=== PATIENT | female | born 1980 | race Caucasian/White ===

== ENCOUNTER → 2022-06-11 16:18 | Outpatient (CLI) | payer OTHER, SELFPAY ==
--- NOTE | ~2022-06-11 | MM_ITS ---
EXAMINATION: MM screening jazmine BI w artem HISTORY: Screening mammogram TECHNIQUE: Craniocaudal and mediolateral oblique 3-D tomosynthesis images were obtained and synthetic 2-D images were generated. CAD analysis was submitted and interpreted. COMPARISON: No prior mammogram is available for comparison at this institution. BREAST PARENCHYMAL COMPOSITION: There are scattered areas of fibroglandular density. FINDINGS: There are bilateral breast masses, mostly circumscribed and relatively low density. Bilater al diagnostic mammography and bilateral breast ultrasound examination are recommended. IMPRESSION: 1. Bilateral breast masses 2. Bilateral diagnostic mammography and breast ultrasound examination are recommended BI-RADS Category 0: Incomplete: Needs additional imaging evaluation. Reviewed, dictated and finalized at location A. HT FOLLOWER IMPRESSION: 1. Bilateral breast masses 2. Bilateral diagnostic mammography and breast ultrasound examination are recom mended BI-RADS Category 0: Incomplete: Needs additional imaging evaluation.
== END ==
PROVIDERS: PCP Family Medicine; Visit Provider Family Medicine
DX: Z12.31 Encounter for screening mammogram for malignant neoplasm of breast (principal); R92.8 Other abnormal and inconclusive findings on diagnostic imaging of breast
CPT/HCPCS: 77063; 77067

== ENCOUNTER 2022-06-29 09:28 | Outpatient (CLI) | payer OTHER, SELFPAY ==
--- NOTE | ~2022-06-29 | MMUS_ITS ---
EXAMINATION: MM diagnostic jazmine BI w artem, US breast BI complete HISTORY: Follow-up bilateral breast asymmetries. TECHNIQUE: Additional 3-D tomosynthesis images of the breasts were performed and synthetic 2-D images were generated. CAD analysis was submitted and interpreted. High resolution complete bilateral breas t ultrasound was performed. COMPARISON: 06/11/2022 BREAST PARENCHYMAL COMPOSITION: Breast composed of scattered areas of fibroglandular density FINDINGS: MAMMOGRAPHIC FINDINGS: Breast composed of scattered areas of fibroglandular density. There is a partially circumscribed mass in the lower outer quadrant of the right breast anteriorly near the nipple. There is persistent asym metry in the lateral aspect of the left breast on CC view and slightly superior in the left breast on mediolateral and MLO views. ULTRASOUND: Complete bilateral US of all 4 quadrants of the breasts and retroareolar region was reviewed. Right breast: At 9:00 near the nipple there is an irregular shaped hypoechoic mass with posterior sha dowing measuring 9 x 8 x 6 mm. No internal vascularity. At 11:00, 8 cm from the nipple there is an ov al 1 cm hypoechoic mass with parallel orientation, circumscribed margins and no internal vascularity, likely benign. Left breast: At 1:00, 8 cm from the nipple, there is an oval circumscribed hypoechoic mass with paral lel orientation, no internal vascularity and no posterior features measuring 8 mm maximum dimension. IMPRESSION: 1. Irregular shaped hypoechoic mass of the right breast at 9:00 near the areola corresponding to the mammographic finding. Ultrasound-guided right breast biopsy recommended. BI-RADS Category 4. 2. Additional bilateral breast masses are identified by ultrasound which are likely benign. Six-month follow-up ultrasound recommended for these masses. BI-RADS category 4, suspicious findings. Reviewed, dictated and finalized at location A. LY LIVING EDUCATOR IMPRESSION: 1. Irregular shaped hypoechoic mass of the right breast at 9:00 near the areola corresponding to the mammographic finding. Ultrasound-guided right breast biop sy recommended. BI-RADS Category 4. 2. Additional bilateral breast masses are identified by ultrasound which are li brennan benign. Six-month follow-up ultrasound recommended for these masses. BI-RADS category 4, suspicious findings.
== END 2022-06-29 09:29 ==
LOC: MICIMG 09:29
PROVIDERS: PCP Family Medicine; Visit Provider Family Medicine
DX: R92.8 Other abnormal and inconclusive findings on diagnostic imaging of breast (principal)
CPT/HCPCS: 76641; 77062; 77066; G0279

== ENCOUNTER 2022-07-05 11:53 | Outpatient (CLI) | payer OTHER, SELFPAY ==
--- NOTE | ~2022-07-05 | MMUS_ITS ---
MM post biopsy invasive RT, US breast biopsy RT w image EXAMINATION: US GUIDED NEEDLE BIOPSY WITH VACUUM ASSISTANCE DATE: 07/05/2022 14:12 TRENCH SHOVEL OPERATOR INDICATION: Right breast mass seen on recent examination. Ultrasound-guided core biopsy is requested to evaluate for malignancy. TECHNIQUE AND FINDINGS: The risks and potential benefits of the procedure were discussed with the patient, and written inform ed consent was obtained. After sterile preparation of the breast, 1% lidocaine was utilized for loca l anesthesia. 1% lidocaine with epinephrine was used for deep anesthesia. A 10G vacuum-assisted biopsy gun needle was advanced through to the outer edge of the region of inter est from a superior approach utilizing sonographic guidance. A total of 4 tissue core samples were o btained through the lesion. An Inrad tissue marker clip was then placed at the biopsy site. Hemostas is was achieved. The patient tolerated procedure well and there was no evidence of immediate complication. The patien t was given verbal instructions partly is from the department. Right breast mammograms to document t issue marker clip placement. The tissue samples were submitted to surgical pathology for histologic a nalysis. IMPRESSION: 1. Successful ultrasound-guided vacuum-assisted biopsy of right breast mass with tissue marker place ment. Please refer to pathology report for histologic analysis. Reviewed, dictated and finalized at location A. CH SHOVEL OPERATOR IMPRESSION: 1. Successful ultrasound-guided vacuum-assisted biopsy of right breast mass wi th tissue marker placement. Please refer to pathology report for histologic shauna lysis.
== END 2022-07-05 11:54 | disposition home or self-care (01) ==
PROVIDERS: PCP Family Medicine; Visit Provider Registered Nurse
DX: N63.11 Unspecified lump in the right breast, upper outer quadrant (principal); D24.1 Benign neoplasm of right breast
CPT/HCPCS: 19083; 88305; A4648

== ENCOUNTER → 2023-01-18 14:16 | Outpatient (CLI) | payer OTHER, SELFPAY ==
--- NOTE | ~2023-01-18 | US_ITS ---
US breast BI limited 01/18/2023 14:41 Indication: Follow-up probable benign bilateral breast masses Procedure: High-resolution Limited bilateral breast ultrasound Comparison: 07/05/2019 and 06/29/2022 Findings: At 11:00, 8 cm from the nipple, there is a millimeter cyst. At 9:00, 1 cm from the nipple t here is a hypoechoic mass measuring 11 mm, previously biopsy proven benign fibroadenoma. At 9:00, 1 c m from the nipple there is a 3 mm cyst. In the left breast at 1:00, 8 cm from the nipple there is an oval hypoechoic mass measuring 7 x 4 x 9 mm with parallel orientation, no significant posterior features and no internal vascularity. This co mpares with 8 x 6 x 4 mm on prior examination. No significant interval change. Impression: 1: Stable likely benign bilateral breast masses. BI-RADS CATEGORY 3-PROBABLY BENIGN FINDING RECOMMENDATION: Six-month follow-up diagnostic bilateral mammogram and ultrasound recommended. Reviewed, dictated and finalized at location A. Impression: 1: Stable likely benign bilateral breast masses. BI-RADS CATEGORY 3-PROBABLY BENIGN FINDING RECOMMENDATION: Six-month follow-up diagnostic bilateral mammogram and ultrasou nd recommended.
== END ==
PROVIDERS: PCP Family Medicine; Visit Provider Family Medicine
DX: R92.8 Other abnormal and inconclusive findings on diagnostic imaging of breast (principal)
CPT/HCPCS: 76642

== ENCOUNTER → 2023-07-26 14:04 | Outpatient (CLI) | payer OTHER, SELFPAY ==
--- NOTE | ~2023-07-26 | MM_ITS ---
EXAMINATION: MM diagnostic jazmine BI w artem HISTORY: Previous benign right breast biopsy TECHNIQUE: Additional 3-D tomosynthesis images of the breasts were performed and synthetic 2-D images were generated. CAD analysis was submitted and interpreted. COMPARISON: 06/11/2022 BREAST PARENCHYMAL COMPOSITION: Not dense: There are scattered areas of fibroglandular density. FINDINGS: There are no suspicious masses, calcifications or architectural distortion in the right hugo ast to suggest malignancy. There is tissue marker from previous benign biopsy in the periareolar loca tion of the right breast. IMPRESSION: 1. No mammographic evidence for malignancy in either breast. 2. Routine yearly screening mammogram and regular clinical breast examination are recommended. BI-RADS Category 1: Negative Reviewed, dictated and finalized at location A. INSPECTOR IMPRESSION: 1. No mammographic evidence for malignancy in either breast. 2. Routine yearly screening mammogram and regular clinical breast examination a re recommended. BI-RADS Category 1: Negative
== END ==
PROVIDERS: PCP Family Medicine; Visit Provider Family Medicine
DX: R92.8 Other abnormal and inconclusive findings on diagnostic imaging of breast (principal)
CPT/HCPCS: 77062; 77066; G0279

== ENCOUNTER 2024-10-30 14:43 | Outpatient (CLI) | payer OTHER, SELFPAY ==
--- NOTE | ~2024-10-30 | MM_ITS ---
EXAMINATION: MM screening jazmine BI w artem HISTORY: Screening TECHNIQUE: Craniocaudal and mediolateral oblique 3-D tomosynthesis images were obtained and synthetic 2-D images were generated. CAD analysis was submitted and interpreted. COMPARISON: Comparison to multiple prior studies sequentially, with oldest reviewed study dated 02/2023. BREAST PARENCHYMAL COMPOSITION: Not dense: There are scattered areas of fibroglandular density. FINDINGS: There is no evidence of suspicious mass, calcification, or architectural distortion to sugg est malignancy in either breast. There has been no suspicious interval change. IMPRESSION: 1. No mammographic evidence of malignancy. 2. Recommend routine screening mammography in one year. BI-RADS Category 1: Negative Reviewed, dictated and finalized at location A.
== END 2024-10-30 14:44 | disposition home or self-care (01) ==
LOC: MICIMG 14:44
PROVIDERS: PCP Family Medicine; Visit Provider Family Medicine
DX: Z12.31 Encounter for screening mammogram for malignant neoplasm of breast (principal)
CPT/HCPCS: 77063; 77067